=== PATIENT | female | born 1955 | race African-American/Black ===

== ENCOUNTER → 2016-08-08 | Outpatient (CLI) | payer OTHER ==
[~2016-08-08] MED LIST: ASPIRIN81 M1 PO; CALCIUM + D 601 EACH PO; CRESTOR10 MG PO; DIOVAN40 MG PO; FLEXERIL10 MG PO; HYDROCHLOROTHIA25 MG PO; JANUMET 50/11 TABLET PO; JANUMET 50/51 TABLET PO; METFORMIN HCL500 MG PO; PERCOCET 10-321 EACH PO; PRAVASTATIN SOD20 MG PO; ZESTORETIC 20-1 EACH PO; ZOCOR40 MG PO
== END | disposition home or self-care (01) ==
LOC: RAD 09:39
DX: M51.36 Other intervertebral disc degeneration, lumbar region (principal); M06.9 Rheumatoid arthritis, unspecified; M54.5 Low back pain; G89.29 Other chronic pain; M25.50 Pain in unspecified joint; Z88.0 Allergy status to penicillin; Z88.6 Allergy status to analgesic agent; Z88.8 Allergy status to other drugs, medicaments and biological substances
CPT/HCPCS: 72100

== ENCOUNTER 2017-07-17 16:57 | Emergency (ER) | payer OTHER ==
[~2017-07-17] VITALS: Ht 165.1 cm; Wt 90.5 kg
[2017-07-17 17:44] LABS: HEMATOCRIT 35.5 % (36.0-46.0); HEMOGLOBIN 11.9 G/DL (11.9-15.5); MCH 29.9 PG (29.0-34.0); MCHC 33.5 G/DL (30.0-36.0); MCV 89.2 FL (83-99); PLATELET COUNT 290 K/uL (156-360); RBC DIS.WIDTH-CV 13.5 % (11.8-14.6); RBC DIS.WIDTH-SD 44.1 % (39-53); RED BLOOD COUNT 3.98 M/uL (3.80-5.20)
[2017-07-17 17:53] LABS: CHLORIDE 103 mEq/L (99-109); POTASSIUM 4.2 mEq/L (3.7-5.4); SODIUM 140 mEq/L (136-147)
[2017-07-17 17:54] LABS: GLUCOSE 100 mg/dL (70-99)
[2017-07-17 17:58] LABS: CREATININE 0.7 mg/dL (0.6-1.3); GFR ESTIMATE (CALCULATED) > 59 mL/min/
[2017-07-17 17:59] LABS: UREA NITROGEN (BUN) 15 mg/dL (9-23)
[2017-07-17 18:05] LABS: TROP-I INTERPRETATION NEGATIVE; TROPONIN-I < 0.01 ng/mL (0.0-0.30)
[2017-07-17 19:14] VITALS: BP 114/76
== END 2017-07-17 19:19 | disposition home or self-care (01) ==
LOC: EME 16:57
PROVIDERS: Emergency Medicine Emergency Medical Services
DX: R07.9 Chest pain, unspecified (principal); J06.9 Acute upper respiratory infection, unspecified; I10 Essential (primary) hypertension; E78.5 Hyperlipidemia, unspecified; E11.9 Type 2 diabetes mellitus without complications; F41.9 Anxiety disorder, unspecified; F32.9 Major depressive disorder, single episode, unspecified; Z88.5 Allergy status to narcotic agent; Z88.0 Allergy status to penicillin; Z88.6 Allergy status to analgesic agent
CPT/HCPCS: 71020; 80048; 84484; 85027; 93005; 99281; 99284